=== PATIENT | female | born 1980 | race Native Hawaiian/Other Pacific Islander ===

== ENCOUNTER 2019-03-08 13:39 | Outpatient (CLI) | payer MEDICAID | END 2019-03-08 23:59 | disposition home or self-care (01) | LOC: RAD 13:39 | PROVIDERS: ATTEND Physician Assistant Medical | DX: R10.9 Unspecified abdominal pain (principal) | CPT/HCPCS: 76775 ==

== ENCOUNTER 2019-03-22 21:40 | Inpatient (IN) | payer MEDICAID ==
[~2019-03-22] VITALS: Ht 167.6 cm; Wt 55.0 kg
[2019-03-22 22:54] LABS: BASOPHILS # (AUTO) 0.1 X10'3 (0-0.2); MEAN CORPUSCULAR HGB CONC 33.8 g/dL (33.0-36.5); MEAN PLATELET VOLUME 7.4 FL (7.4-10.4); MONOCYTES # (AUTO) 1.4 X10'3 (0-0.9); NEUTROPHILS # (AUTO) 11.1 X10'3 (1.8-7.7)
[2019-03-22 22:56] LABS: BASOPHILS % (AUTO) 0.5 % (0-1); EOSINOPHILS # (AUTO) 0.5 X10'3 (0-0.9); EOSINOPHILS % (AUTO) 3.4 % (0-6); HEMATOCRIT 26.6 % (35.0-45.0); LYMPHOCYTES # (AUTO) 1.3 X10'3 (1.1-4.8); LYMPHOCYTES % (AUTO) 9.1 % (21-51); MEAN CORPUSCULAR HEMOGLOBIN 32.8 PG (27.0-31.0); PLATELET COUNT 736 X10'3 (140-440); RED BLOOD COUNT 2.75 X10'6 (4.20-5.60); WHITE BLOOD COUNT 14.4 X10'3 (4.5-11.0)
[2019-03-22 23:07] LABS: ALANINE AMINOTRANSFERASE 14 U/L (12-78); ALBUMIN 1.8 G/DL (3.4-5.0); ALBUMIN/GLOBULIN RATIO 0.4 (1.1-1.5); ALKALINE PHOSPHATASE 131 IU/L (46-116); ANION GAP 11 (8-16); ASPARTATE AMINO TRANSFERASE 16 U/L (10-37); BILIRUBIN,TOTAL 0.4 MG/DL (0.1-1.0); BLOOD UREA NITROGEN 10 MG/DL (7-18); CALCIUM 8.4 MG/DL (8.5-10.1); CHLORIDE 99 MMOL/L (99-107); CREATININE 0.83 MG/DL (0.40-0.90); GLUCOSE 99 MG/DL (70-104); POTASSIUM 3.4 MMOL/L (3.5-5.1); SODIUM 133 MMOL/L (135-145); TOTAL PROTEIN 6.9 G/DL (6.4-8.2); eGFR 78 ML/MIN
[2019-03-22 23:14] LABS: URINE HCG NEGATIVE (NEG)
[2019-03-22 23:15] LABS: CLARITY,URINE CLEAR (Clear); COLOR,URINE YELLOW (Yellow); GLUCOSE, URINE NEGATIVE (Neg); KETONES,URINE NEGATIVE (Neg); LEUKOCYTE ESTERASE ,URINE NEGATIVE (Neg); NITRITES, URINE NEGATIVE (Neg); OCCULT BLOOD,URINE NEGATIVE (Neg); PROTEIN,URINE NEGATIVE (Neg); UROBILINOGEN,URINE 0.2 E.U/dL (0.2-1.0)
[2019-03-22 23:19] LABS: UA COLLECTION TYPE CLN CATCH MIDSTREAM
[2019-03-22] MEDS ORDERED: CefTRIAXone 250MG IM Kit w/LIDOcaine IM ONE (23:40)
[2019-03-22] MEDS ORDERED: azithromycin 250mg tablet PO ONE (23:40)
[2019-03-23] MEDS ORDERED: METR500T PO (01:16)
[2019-03-23] MEDS ORDERED: HYDROcodone/acetaminophen 10/325mg tab PO ONE (01:25)
--- NOTE | 2019-03-23 02:38 | NUR ---
CT RESULTED AND PT AWAITING REEVAL FROM PROVIDER
[2019-03-23 03:12] LABS: LIPASE 8158 U/L (73-393)
--- NOTE | 2019-03-23 03:47 | NUR ---
pt placed on hospital bed for comfort
[2019-03-23] MEDS ORDERED: magnesium hydroxide 30ml (MOM) UD suspension PO PRN (04:20)
[2019-03-23] MEDS ORDERED: acetaminophen 325mg tablet PO PRN (04:20)
[2019-03-23] MEDS ORDERED: potassium CL 10mEq/100ml bag 100 ML IV PRN ×2 (04:20)
[2019-03-23] MEDS ORDERED: potassium Cl 20 mEq SR tablet PO PRN (04:20)
[2019-03-23] MEDS ORDERED: ondansetron/PF 4mg/2ml inj IV PRN (04:20)
[2019-03-23] MEDS ORDERED: mag hydrox/Alum hydrox/simeth 30ml oral suspension PO PRN (04:20)
[2019-03-23] MEDS: normal saline 1000ml 1,000 ML IV SCH ×4 (04:48→23:20)
[2019-03-23] MEDS: HYDROcodone/acetaminophen 5mg/325mg tablet PO PRN ×3 (04:48→22:00)
--- NOTE | 2019-03-23 04:59 | NUR ---
IPA 359A, PT UP TO BR , AMBLUATING WITH STEADY GAIT. REPROTS PAIN TO LEFT FLANK AND LEFT ABDOMEN OF 8 OUT OF 10. GIVEN NORCO. PIV NOW IN PLACE, 20 G R FA. STABLE VS.
--- NOTE | 2019-03-23 05:00 | NUR ---
Patient in room ED 2. I have received report from Milena GARCIA in ER and had the opportunity to ask questions awaiting pts arrival to room 359A. Addendum: 03/23/19 at 0520 by Lorraine De La Cruz RN Amended: Links added.
[2019-03-23 05:44] VITALS: BP 122/81
[2019-03-23] MEDS: piperacillin/tazo 4.5gm/100ml 100 ML IV SCH ×3 (06:06→23:14)
--- NOTE | 2019-03-23 07:14 | NUR ---
Patient in room [facility] 359. I have received report from RADHA Peters and had the opportunity to ask questions and assume patient care.
[2019-03-23 08:00] VITALS: BP 125/78
[2019-03-23] MEDS: K and/or MAG REPLACEMENT MC SCH ×2 (08:00→19:33)
[2019-03-23 08:19] LABS: MAGNESIUM 1.4 MG/DL (1.5-2.4)
[2019-03-23 08:54] LABS: ALANINE AMINOTRANSFERASE 14 U/L (12-78); ALBUMIN 1.8 G/DL (3.4-5.0); ALBUMIN/GLOBULIN RATIO 0.4 (1.1-1.5); ALKALINE PHOSPHATASE 123 IU/L (46-116); ANION GAP 9 (8-16); ASPARTATE AMINO TRANSFERASE 12 U/L (10-37); BILIRUBIN,TOTAL 0.3 MG/DL (0.1-1.0); BLOOD UREA NITROGEN 8 MG/DL (7-18); BUN/CREATININE RATIO 10.5 (6.6-38.0); CALCIUM 8.7 MG/DL (8.5-10.1); CHLORIDE 101 MMOL/L (99-107); CREATININE 0.76 MG/DL (0.40-0.90); GLUCOSE 95 MG/DL (70-104); MAGNESIUM 1.5 MG/DL (1.5-2.4); POTASSIUM 3.4 MMOL/L (3.5-5.1); SODIUM 135 MMOL/L (135-145); TOTAL CARBON DIOXIDE 25.5 MMOL/L (24-32); TOTAL PROTEIN 6.6 G/DL (6.4-8.2); eGFR 86 ML/MIN
[2019-03-23] MEDS: potassium Cl 20 mEq SR tablet PO PRN ×3 (09:25→17:01)
[2019-03-23] MEDS ORDERED: NO HOME MEDS (09:29)
[2019-03-23 11:00] VITALS: BP 111/76
--- NOTE | 2019-03-23 12:41 | NUR ---
PAGER ID: [phone] MESSAGE: [id number] pt. Calli Tobias. pt. lipase is [id number]. she's currently on a clear liquid diet. do you want to keep that or have her be NPO? please advise. RADHA Kaba [id number]
[2019-03-23] MEDS: morphine 2 MG/ML inj. syringe IV PRN ×2 (12:50→19:52)
[2019-03-23 18:00] VITALS: BP 118/78
--- NOTE | 2019-03-23 18:10 | NUR ---
Patient in room [facility] 359. I have received report from RADHA Mcadams and had the opportunity to ask questions and assume patient care.
--- NOTE | 2019-03-23 19:05 | NUR ---
Problems reprioritized. Patient report given, questions answered & plan of care reviewed with RADHA Pacheco.
[2019-03-23] MEDS: lactobacillus rhamnosus 10,000 MMU CELLS/CAPSULE PO SCH (19:52)
[2019-03-24] MEDS: morphine 2 MG/ML inj. syringe IV PRN ×3 (01:11→21:00)
[2019-03-24 01:20] VITALS: BP 119/76
[2019-03-24] MEDS: HYDROcodone/acetaminophen 5mg/325mg tablet PO PRN ×5 (02:39→23:41)
[2019-03-24 04:39] LABS: BASOPHILS # (AUTO) 0.1 X10'3 (0-0.2); BASOPHILS % (AUTO) 0.6 % (0-1); EOSINOPHILS # (AUTO) 0.8 X10'3 (0-0.9); EOSINOPHILS % (AUTO) 7.2 % (0-6); HEMATOCRIT 24.5 % (35.0-45.0); HEMOGLOBIN 8.2 g/dl (12.0-16.0); LYMPHOCYTES # (AUTO) 1.4 X10'3 (1.1-4.8); LYMPHOCYTES % (AUTO) 13.4 % (21-51); MEAN CORPUSCULAR HEMOGLOBIN 32.3 PG (27.0-31.0); MEAN CORPUSCULAR HGB CONC 33.5 g/dL (33.0-36.5); MEAN CORPUSCULAR VOLUME 96.4 FL (78-98); MEAN PLATELET VOLUME 7.1 FL (7.4-10.4); MONOCYTES # (AUTO) 1.4 X10'3 (0-0.9); MONOCYTES % (AUTO) 12.9 % (2-12); NEUTROPHILS # (AUTO) 7.1 X10'3 (1.8-7.7); NEUTROPHILS % (AUTO) 65.9 % (42-75); PLATELET COUNT 740 X10'3 (140-440); RED BLOOD COUNT 2.54 X10'6 (4.20-5.60); RED CELL DISTRIBUTION WIDTH 14.5 % (11.5-14.5); WHITE BLOOD COUNT 10.7 X10'3 (4.5-11.0)
[2019-03-24 05:01] LABS: ALANINE AMINOTRANSFERASE 12 U/L (12-78); ALBUMIN 1.7 G/DL (3.4-5.0); ALBUMIN/GLOBULIN RATIO 0.4 (1.1-1.5); ALKALINE PHOSPHATASE 108 IU/L (46-116); ANION GAP 8 (8-16); ASPARTATE AMINO TRANSFERASE 13 U/L (10-37); BILIRUBIN,TOTAL 0.3 MG/DL (0.1-1.0); BLOOD UREA NITROGEN 7 MG/DL (7-18); BUN/CREATININE RATIO 8.5 (6.6-38.0); CALCIUM 8.7 MG/DL (8.5-10.1); CHLORIDE 107 MMOL/L (99-107); CREATININE 0.82 MG/DL (0.40-0.90); GLUCOSE 79 MG/DL (70-104); POTASSIUM 3.8 MMOL/L (3.5-5.1); SODIUM 139 MMOL/L (135-145); TOTAL CARBON DIOXIDE 23.8 MMOL/L (24-32); TOTAL PROTEIN 6.4 G/DL (6.4-8.2); eGFR 79 ML/MIN
--- NOTE | 2019-03-24 06:00 | NUR ---
Patient in room [facility] 359. I have received report from RADHA Pacheco and had the opportunity to ask questions and assume patient care.
[2019-03-24 06:18] LABS: HYPERSEGMENTED NEUTROPHILS 1+; PLATELET ESTIMATE INCREASED; TOTAL CELLS COUNTED 100
[2019-03-24 06:19] LABS: HYPOCHROMASIA 1+; POLYCHROMASIA 1+
--- NOTE | 2019-03-24 06:38 | NUR ---
Problems reprioritized. Patient report given, questions answered & plan of care reviewed with RADHA Salinas and RADHA Carvajal.
[2019-03-24 07:00] VITALS: BP 132/82
[2019-03-24] MEDS: K and/or MAG REPLACEMENT MC SCH ×2 (08:00→19:09)
[2019-03-24] MEDS: normal saline 1000ml 1,000 ML IV SCH ×2 (08:06→17:25)
[2019-03-24] MEDS: piperacillin/tazo 4.5gm/100ml 100 ML IV SCH ×3 (08:06→23:42)
[2019-03-24] MEDS: lactobacillus rhamnosus 10,000 MMU CELLS/CAPSULE PO SCH ×2 (08:06→19:22)
[2019-03-24 11:00] VITALS: BP 119/81
[2019-03-24 14:17] LABS: LIPASE 5040 U/L (73-393)
[2019-03-24 18:00] VITALS: BP 131/85
--- NOTE | 2019-03-24 18:42 | NUR ---
Problems reprioritized. Patient report given, questions answered & plan of care reviewed with RADHA LEGGETT .
--- NOTE | 2019-03-24 19:06 | NUR ---
Patient in room [facility] 359. I have received report from Alena RN and Rita RN and had the opportunity to ask questions and assume patient care.
[2019-03-24] MEDS: diatr meglu/diatrizoate 30ml oral sol.-(3 dose) bottle PO SCH (21:00)
[2019-03-25 00:15] VITALS: BP 134/87
[2019-03-25] MEDS: normal saline 1000ml 1,000 ML IV SCH ×3 (02:47→23:56)
[2019-03-25] MEDS: HYDROcodone/acetaminophen 5mg/325mg tablet PO PRN ×5 (03:47→22:48)
[2019-03-25 05:56] LABS: BASOPHILS # (AUTO) 0.1 X10'3 (0-0.2); BASOPHILS % (AUTO) 0.8 % (0-1); RED CELL DISTRIBUTION WIDTH 14.5 % (11.5-14.5)
[2019-03-25 06:00] LABS: EOSINOPHILS # (AUTO) 0.8 X10'3 (0-0.9); EOSINOPHILS % (AUTO) 7.3 % (0-6); HEMATOCRIT 23.6 % (35.0-45.0); LYMPHOCYTES # (AUTO) 1.9 X10'3 (1.1-4.8); LYMPHOCYTES % (AUTO) 17.4 % (21-51); MEAN CORPUSCULAR HEMOGLOBIN 32.9 PG (27.0-31.0); MEAN CORPUSCULAR HGB CONC 33.8 g/dL (33.0-36.5); MEAN CORPUSCULAR VOLUME 97.5 FL (78-98); MEAN PLATELET VOLUME 7.7 FL (7.4-10.4); MONOCYTES % (AUTO) 9.2 % (2-12); NEUTROPHILS # (AUTO) 6.9 X10'3 (1.8-7.7); NEUTROPHILS % (AUTO) 65.3 % (42-75); PLATELET COUNT 769 X10'3 (140-440); RED BLOOD COUNT 2.42 X10'6 (4.20-5.60); WHITE BLOOD COUNT 10.6 X10'3 (4.5-11.0)
[2019-03-25 06:14] LABS: % IRON SATURATION 8 % (11-46); IRON 14 UG/DL (49-151); TOTAL IRON BINDING CAPACITY 173 UG/DL (259-388)
[2019-03-25 06:28] LABS: ALANINE AMINOTRANSFERASE 10 U/L (12-78); ALBUMIN 1.5 G/DL (3.4-5.0); ALBUMIN/GLOBULIN RATIO 0.3 (1.1-1.5); ALKALINE PHOSPHATASE 101 IU/L (46-116); ANION GAP 16 (8-16); ASPARTATE AMINO TRANSFERASE 12 U/L (10-37); BILIRUBIN,TOTAL 0.3 MG/DL (0.1-1.0); BLOOD UREA NITROGEN 4 MG/DL (7-18); CALCIUM 8.3 MG/DL (8.5-10.1); CHLORIDE 105 MMOL/L (99-107); GLUCOSE 65 MG/DL (70-104); POTASSIUM 3.8 MMOL/L (3.5-5.1); SODIUM 140 MMOL/L (135-145); TOTAL CARBON DIOXIDE 19.5 MMOL/L (24-32); TOTAL PROTEIN 6.5 G/DL (6.4-8.2); eGFR 81 ML/MIN
--- NOTE | 2019-03-25 06:38 | NUR ---
Problems reprioritized. Patient report given, questions answered & plan of care reviewed with RADHA Carlson.
--- NOTE | 2019-03-25 07:01 | NUR ---
Patient in room [facility] 359. I have received report from JOCE GARCIA and had the opportunity to ask questions and assume patient care.
[2019-03-25 07:19] VITALS: BP 135/90
[2019-03-25 07:19] LABS: HYPOCHROMASIA 1+; PLATELET ESTIMATE INCREASED; POLYCHROMASIA 1+; TOTAL CELLS COUNTED 100
[2019-03-25] MEDS: piperacillin/tazo 4.5gm/100ml 100 ML IV SCH ×3 (07:36→23:56)
[2019-03-25] MEDS: lactobacillus rhamnosus 10,000 MMU CELLS/CAPSULE PO SCH ×2 (07:36→18:48)
[2019-03-25] MEDS: diatr meglu/diatrizoate 30ml oral sol.-(3 dose) bottle PO SCH ×2 (07:36→09:26)
[2019-03-25] MEDS: K and/or MAG REPLACEMENT MC SCH ×2 (08:00→20:00)
[2019-03-25] MEDS ORDERED: iohexol 300mg/ml 100ml inj. ONE (09:05)
[2019-03-25] MEDS: morphine 2 MG/ML inj. syringe IV PRN (10:39)
[2019-03-25 11:00] VITALS: BP 129/83
--- NOTE | 2019-03-25 18:27 | NUR ---
Problems reprioritized. Patient report given, questions answered & plan of care reviewed with JOCE GARCIA.
[2019-03-25 18:30] VITALS: BP 137/86
--- NOTE | 2019-03-25 18:39 | NUR ---
Patient in room [facility] 359. I have received report from RADHA Carlson and had the opportunity to ask questions and assume patient care.
--- NOTE | 2019-03-25 19:01 | NUR ---
Lipase 1393 was 8158. Patient states that she would like to eat. Her last meal was on 03/21/19. Called Dr. Le and she would like pt to remain NPO. Talked to patient and she is aware of importance to be NPO until Lipase level decrease. Will continue to monitor patient for c/o pain.
[2019-03-26] VITALS: BP 144/79
[2019-03-26] MEDS: morphine 2 MG/ML inj. syringe IV PRN ×4 (00:09→19:27)
[2019-03-26] MEDS: HYDROcodone/acetaminophen 5mg/325mg tablet PO PRN ×3 (02:45→22:43)
[2019-03-26 06:17] LABS: BASOPHILS # (AUTO) 0.1 X10'3 (0-0.2); EOSINOPHILS # (AUTO) 0.6 X10'3 (0-0.9); HEMOGLOBIN 7.6 g/dl (12.0-16.0); LYMPHOCYTES # (AUTO) 1.9 X10'3 (1.1-4.8); NEUTROPHILS # (AUTO) 5.5 X10'3 (1.8-7.7)
[2019-03-26 06:20] LABS: BASOPHILS % (AUTO) 0.8 % (0-1); EOSINOPHILS % (AUTO) 6.2 % (0-6); HEMATOCRIT 22.2 % (35.0-45.0); MEAN CORPUSCULAR HEMOGLOBIN 33.2 PG (27.0-31.0); MEAN CORPUSCULAR HGB CONC 34.4 g/dL (33.0-36.5); MEAN CORPUSCULAR VOLUME 96.6 FL (78-98); MEAN PLATELET VOLUME 6.7 FL (7.4-10.4); MONOCYTES % (AUTO) 10.6 % (2-12); NEUTROPHILS % (AUTO) 61.4 % (42-75); PLATELET COUNT 773 X10'3 (140-440)
[2019-03-26 06:25] LABS: ALANINE AMINOTRANSFERASE 7 U/L (12-78); ALBUMIN 1.6 G/DL (3.4-5.0); ALBUMIN/GLOBULIN RATIO 0.3 (1.1-1.5); ALKALINE PHOSPHATASE 91 IU/L (46-116); ANION GAP 10 (8-16); ASPARTATE AMINO TRANSFERASE 13 U/L (10-37); BILIRUBIN,TOTAL 0.2 MG/DL (0.1-1.0); BLOOD UREA NITROGEN 3 MG/DL (7-18); BUN/CREATININE RATIO 4.2 (6.6-38.0); CALCIUM 8.7 MG/DL (8.5-10.1); CHLORIDE 105 MMOL/L (99-107); CREATININE 0.72 MG/DL (0.40-0.90); GLUCOSE 72 MG/DL (70-104); LIPASE 852 U/L (73-393); POTASSIUM 3.5 MMOL/L (3.5-5.1); SODIUM 140 MMOL/L (135-145); TOTAL CARBON DIOXIDE 24.9 MMOL/L (24-32); TOTAL PROTEIN 6.3 G/DL (6.4-8.2); eGFR > 90 ML/MIN
[2019-03-26 07:00] VITALS: BP 133/55
--- NOTE | 2019-03-26 07:02 | NUR ---
Problems reprioritized. Patient report given, questions answered & plan of care reviewed with RADHA Fernandes.
[2019-03-26] MEDS: piperacillin/tazo 4.5gm/100ml 100 ML IV SCH ×2 (07:48→15:16)
[2019-03-26] MEDS: K and/or MAG REPLACEMENT MC SCH ×2 (07:48→20:00)
[2019-03-26] MEDS: lactobacillus rhamnosus 10,000 MMU CELLS/CAPSULE PO SCH ×2 (07:48→20:43)
[2019-03-26 11:00] VITALS: BP 139/87
--- NOTE | 2019-03-26 11:37 | NUR ---
Paged case management regarding transport for tomorrow's transfer.
--- NOTE | 2019-03-26 11:45 | NUR ---
Received a phone response from Daphnie at case a management. If pt. does transfer, it will be in an ambulance. Hospitalist plans to consult with IR now to see if a drain can be placed/ unsure at this point if pt. is going to transfer or not.
--- NOTE | 2019-03-26 11:59 | NUR ---
Spoke to MD Le. No plans to start TPN today- maybe tomorrow. Possible consult with IR. Nicotine patch ordered for pt.
[2019-03-26] MEDS: nicotine 14mg patch - 24hr TD SCH (13:37)
--- NOTE | 2019-03-26 15:38 | NUR ---
Pt. is not transferring r/t facility non-accepting per case management. Pt. updated on POC.
--- NOTE | 2019-03-26 18:23 | NUR ---
Pt. in bed resting comfortably with rise and fall of chest, report given to oncoming RADHA Waller.
[2019-03-26 19:00] VITALS: BP 139/88
--- NOTE | 2019-03-26 19:00 | NUR ---
Patient in room [facility] 359. I have received report from Dena GARCIA and had the opportunity to ask questions and assume patient care.
--- NOTE | 2019-03-26 19:27 | NUR ---
At 1927 MS 2 mg were administered, not the 4 mg as is shown on the MAR. I was unable to remove the dose from the 4 mg med administration. I did add the dose to the 2 mg administration.
[2019-03-26] MEDS: normal saline 1000ml 1,000 ML IV SCH (22:45)
[2019-03-27] VITALS (7 sets, daily range): BP systolic 118–145; BP diastolic 73–90
[2019-03-27] MEDS: piperacillin/tazo 4.5gm/100ml 100 ML IV SCH ×4 (00:16→23:45)
[2019-03-27] MEDS: normal saline 1000ml 1,000 ML IV SCH ×2 (03:22→13:56)
[2019-03-27] MEDS: morphine 2 MG/ML inj. syringe IV PRN ×2 (03:36→21:57)
[2019-03-27 06:11] LABS: BASOPHILS # (AUTO) 0.1 X10'3 (0-0.2); EOSINOPHILS # (AUTO) 0.3 X10'3 (0-0.9); EOSINOPHILS % (AUTO) 2.7 % (0-6); HEMOGLOBIN 8.3 g/dl (12.0-16.0); LYMPHOCYTES # (AUTO) 1.4 X10'3 (1.1-4.8); MONOCYTES # (AUTO) 1.1 X10'3 (0-0.9); RED BLOOD COUNT 2.51 X10'6 (4.20-5.60)
[2019-03-27 06:14] LABS: BASOPHILS % (AUTO) 0.8 % (0-1); HEMATOCRIT 24.1 % (35.0-45.0); LYMPHOCYTES % (AUTO) 14.2 % (21-51); MEAN CORPUSCULAR HEMOGLOBIN 32.9 PG (27.0-31.0); MEAN CORPUSCULAR HGB CONC 34.4 g/dL (33.0-36.5); MEAN CORPUSCULAR VOLUME 95.8 FL (78-98); MEAN PLATELET VOLUME 6.9 FL (7.4-10.4); MONOCYTES % (AUTO) 10.4 % (2-12); NEUTROPHILS # (AUTO) 7.3 X10'3 (1.8-7.7); NEUTROPHILS % (AUTO) 71.9 % (42-75); PLATELET COUNT 779 X10'3 (140-440); RED CELL DISTRIBUTION WIDTH 14.1 % (11.5-14.5); WHITE BLOOD COUNT 10.1 X10'3 (4.5-11.0)
[2019-03-27 06:26] LABS: ALANINE AMINOTRANSFERASE 9 U/L (12-78); ALBUMIN 1.6 G/DL (3.4-5.0); ALBUMIN/GLOBULIN RATIO 0.3 (1.1-1.5); ALKALINE PHOSPHATASE 86 IU/L (46-116); ANION GAP 15 (8-16); ASPARTATE AMINO TRANSFERASE 13 U/L (10-37); BILIRUBIN,TOTAL 0.2 MG/DL (0.1-1.0); BLOOD UREA NITROGEN 2 MG/DL (7-18); BUN/CREATININE RATIO 2.6 (6.6-38.0); CALCIUM 8.5 MG/DL (8.5-10.1); CHLORIDE 102 MMOL/L (99-107); CREATININE 0.76 MG/DL (0.40-0.90); GLUCOSE 70 MG/DL (70-104); POTASSIUM 3.5 MMOL/L (3.5-5.1); SODIUM 138 MMOL/L (135-145); TOTAL CARBON DIOXIDE 21.2 MMOL/L (24-32); TOTAL PROTEIN 6.5 G/DL (6.4-8.2); eGFR 86 ML/MIN
[2019-03-27 06:42] LABS: LIPASE 2944 U/L (73-393)
--- NOTE | 2019-03-27 06:50 | NUR ---
Problems reprioritized. Patient report given, questions answered & plan of care reviewed with Lorrie GARCIA.
[2019-03-27] MEDS: K and/or MAG REPLACEMENT MC SCH ×2 (08:00→20:00)
[2019-03-27] MEDS: lactobacillus rhamnosus 10,000 MMU CELLS/CAPSULE PO SCH ×2 (08:03→20:07)
[2019-03-27] MEDS: nicotine 14mg patch - 24hr TD SCH (08:03)
[2019-03-27] MEDS: HYDROcodone/acetaminophen 5mg/325mg tablet PO PRN (08:09)
[2019-03-27] MEDS ORDERED: fentaNYL/PF 50MCG/1 ML 2ML syringe IV PRN (10:55)
[2019-03-27] MEDS ORDERED: LIDOcaine 1%/PF 5ML 10 MG/ML VIAL SQ ONE (10:55)
[2019-03-27] MEDS ORDERED: midazolam 2 mg/2 ml injection IV PRN (10:55)
[2019-03-27] MEDS ORDERED: midazolam 2 mg/2 ml injection ONE (11:03)
[2019-03-27] MEDS ORDERED: fentaNYL/PF 50MCG/1 ML 2ML syringe ONE (11:03)
--- NOTE | 2019-03-27 12:00 | NUR ---
received report from Caroline GARCIA. patient arrived to floor. VSS.
--- NOTE | 2019-03-27 12:10 | NUR ---
per MARINO Velazquez no need for post op vitals. Addendum: 03/27/19 at 1211 by Lorrie Crespo RN Amended: Links added.
--- NOTE | 2019-03-27 16:07 | NUR ---
patient in shower.
--- NOTE | 2019-03-27 16:45 | NUR ---
stool sample sent
--- NOTE | 2019-03-27 18:20 | NUR ---
Patient in room [facility] 359. I have received report from Lorrie GARCIA and had the opportunity to ask questions and assume patient care.
--- NOTE | 2019-03-27 18:27 | NUR ---
Problems reprioritized. Patient report given, questions answered & plan of care reviewed with RADHA Waller.
[2019-03-27] MEDS ORDERED: Dextrose 10%-water IV solution 1,000 ML IV PRN (19:11)
[2019-03-27] MEDS ORDERED: magnesium 2GM in 50ml NS 50 ML IV PRN (19:15)
[2019-03-27] MEDS ORDERED: magnesium Cl slow-release 64mg tablet PO PRN (19:15)
[2019-03-27] MEDS ORDERED: magnesium 4gm in 100ml NS 100 ML IV PRN (19:15)
--- NOTE | 2019-03-27 19:43 | NUR ---
Pharmacist called and stated unable to start the PPN tonight, so to follow protocol and hang D10 at 30cc.
[2019-03-27 20:03] LABS: ALANINE AMINOTRANSFERASE 13 U/L (12-78); ALBUMIN 1.9 G/DL (3.4-5.0); ALBUMIN/GLOBULIN RATIO 0.3 (1.1-1.5); ALKALINE PHOSPHATASE 98 IU/L (46-116); ANION GAP 15 (8-16); ASPARTATE AMINO TRANSFERASE 13 U/L (10-37); BILIRUBIN,TOTAL 0.2 MG/DL (0.1-1.0); BLOOD UREA NITROGEN 2 MG/DL (7-18); BUN/CREATININE RATIO 2.5 (6.6-38.0); CHLORIDE 102 MMOL/L (99-107); GLUCOSE 71 MG/DL (70-104); MAGNESIUM 1.3 MG/DL (1.5-2.4); POTASSIUM 3.6 MMOL/L (3.5-5.1); SODIUM 139 MMOL/L (135-145); TOTAL CARBON DIOXIDE 22.5 MMOL/L (24-32); TOTAL PROTEIN 7.5 G/DL (6.4-8.2); TRIGLYCERIDES 154 MG/DL (20-135); eGFR 81 ML/MIN
[2019-03-27] MEDS ORDERED: fat emulsion 20% IV 181.82 ML, MVI, adult No.4 with vit. K 4.55 ML, Trace element-5 inj... IV SCH ×4 (20:11)
[2019-03-27 21:07] LABS: OCCULT BLOOD STOOL NEGATIVE (Neg)
[2019-03-27] MEDS: temazepam 15mg capsule PO PRN (23:50)
[2019-03-28] VITALS: BP 137/88
[2019-03-28] MEDS ORDERED: dextrose 50%-water 50ml dispensing syringe IV PRN ×2 (02:35)
[2019-03-28] MEDS ORDERED: dextrose ORAL solution 15 GM/59 ML bottle PO PRN ×2 (02:35)
[2019-03-28] MEDS ORDERED: MESSAGE TO PHARMACY PO ONE (02:35)
[2019-03-28] MEDS ORDERED: insulin Lispro (HumaLOG) vial - multi-dose SQ SCH (02:35)
[2019-03-28] MEDS ORDERED: insulin regular, human vial - multi-dose SQ SCH (02:35)
[2019-03-28] MEDS ORDERED: glucagon, human recombinant 1mg kit SUBCUT PRN (02:35)
--- NOTE | 2019-03-28 03:20 | NUR ---
Patient had a accu check that was 68. Patient received 25ml of 50% dextrose and rechecked. Blood sugar now 127. Patient showed no symptoms of low blood sugar.
[2019-03-28 06:21] LABS: BASOPHILS # (AUTO) 0.1 X10'3 (0-0.2); EOSINOPHILS # (AUTO) 0.2 X10'3 (0-0.9); HEMOGLOBIN 8.6 g/dl (12.0-16.0); MEAN CORPUSCULAR HEMOGLOBIN 32.6 PG (27.0-31.0); MONOCYTES # (AUTO) 0.9 X10'3 (0-0.9); NEUTROPHILS # (AUTO) 5.7 X10'3 (1.8-7.7); WHITE BLOOD COUNT 8.4 X10'3 (4.5-11.0)
[2019-03-28 06:24] LABS: EOSINOPHILS % (AUTO) 2.6 % (0-6); HEMATOCRIT 24.9 % (35.0-45.0); LYMPHOCYTES # (AUTO) 1.4 X10'3 (1.1-4.8); LYMPHOCYTES % (AUTO) 17.2 % (21-51); MEAN CORPUSCULAR HGB CONC 34.5 g/dL (33.0-36.5); MEAN CORPUSCULAR VOLUME 94.6 FL (78-98); MEAN PLATELET VOLUME 6.8 FL (7.4-10.4); MONOCYTES % (AUTO) 10.9 % (2-12); NEUTROPHILS % (AUTO) 68.3 % (42-75); PLATELET COUNT 801 X10'3 (140-440); RED BLOOD COUNT 2.63 X10'6 (4.20-5.60); RED CELL DISTRIBUTION WIDTH 14.3 % (11.5-14.5)
[2019-03-28 06:48] LABS: ALANINE AMINOTRANSFERASE 10 U/L (12-78); ALBUMIN 1.7 G/DL (3.4-5.0); ALBUMIN/GLOBULIN RATIO 0.4 (1.1-1.5); ALKALINE PHOSPHATASE 81 IU/L (46-116); ANION GAP 13 (8-16); ASPARTATE AMINO TRANSFERASE 13 U/L (10-37); BILIRUBIN,TOTAL 0.2 MG/DL (0.1-1.0); BLOOD UREA NITROGEN 2 MG/DL (7-18); BUN/CREATININE RATIO 2.6 (6.6-38.0); CALCIUM 8.8 MG/DL (8.5-10.1); CHLORIDE 103 MMOL/L (99-107); CREATININE 0.77 MG/DL (0.40-0.90); GLUCOSE 78 MG/DL (70-104); LIPASE 726 U/L (73-393); MAGNESIUM 1.3 MG/DL (1.5-2.4); PHOSPHORUS 4.2 MG/DL (2.3-4.5); POTASSIUM 3.2 MMOL/L (3.5-5.1); PREALBUMIN 13.6 MG/DL (19-36); SODIUM 141 MMOL/L (135-145); TOTAL CARBON DIOXIDE 25.3 MMOL/L (24-32); TOTAL PROTEIN 6.4 G/DL (6.4-8.2); eGFR 85 ML/MIN
--- NOTE | 2019-03-28 06:49 | NUR ---
Problems reprioritized. Patient report given, questions answered & plan of care reviewed with Lorrie GARCIA.
[2019-03-28 06:57] LABS: HEMOGLOBIN A1C 5.3 % (4.5-6.2)
[2019-03-28 07:00] VITALS: BP 135/92
[2019-03-28] MEDS: K and/or MAG REPLACEMENT MC SCH ×2 (08:00→20:00)
--- NOTE | 2019-03-28 08:10 | NUR ---
PAGER ID: [phone] MESSAGE: Carla RAMIREZ 359A: K+ 3.2 WOULD YOU LIKE REPLACEMENT? THANKS! CAIO [id number]
[2019-03-28] MEDS: lactobacillus rhamnosus 10,000 MMU CELLS/CAPSULE PO SCH ×2 (08:12→20:36)
[2019-03-28] MEDS: nicotine 14mg patch - 24hr TD SCH (08:13)
[2019-03-28] MEDS: piperacillin/tazo 4.5gm/100ml 100 ML IV SCH (08:14)
[2019-03-28] MEDS: HYDROcodone/acetaminophen 5mg/325mg tablet PO PRN ×3 (08:21→20:37)
[2019-03-28] MEDS ORDERED: potassium Cl 20 mEq SR tablet PO PRN (08:45)
--- NOTE | 2019-03-28 09:28 | NUR ---
PPN consult, patient does not have a PICC line. Has been NPO >5 days. Admitted with elevated lipase and abdominal pain. Patient found to have EtOH pancreatitis with pseudocyst. Recommend: 1. 2:1 PPN using Clinimix E 4.25/5 at 100 ml/hr providing total volume of 2400 ml daily with separate 20% intralipids running at 17 ml/hr to provide total 81.6 g lipids. Total PPN and lipids will provide 102 g protein, 120 g dextrose, 1216 cals, and 1.59 gm/kg/min CHO loading. This will meet protein needs however will not meet calorie needs. 2. Prealbumin q wednesday/, daily weights, TG q wednesday/ 3. Advance diet as medically indicated to low fat Addendum: 03/28/19 at [address] Amended: Links added.
[2019-03-28] MEDS: potassium CL 10mEq/100ml bag 100 ML IV PRN ×4 (09:51→14:54)
[2019-03-28 11:00] VITALS: BP 161/92
--- NOTE | 2019-03-28 18:16 | NUR ---
Problems reprioritized. Patient report given, questions answered & plan of care reviewed with RADHA Waller.
--- NOTE | 2019-03-28 18:30 | NUR ---
Patient in room [facility] 359. I have received report from Shane majano and had the opportunity to ask questions and assume patient care.
[2019-03-28 20:00] VITALS: BP 128/91
[2019-03-28] MEDS ORDERED: benzonatate 100mg capsule PO PRN (21:00)
[2019-03-28] MEDS ORDERED: fat emulsion IV bag 250 ML IV SCH (21:00)
[2019-03-28] MEDS: insulin glargine (Lantus) pen - multi-dose SQ SCH (21:00)
[2019-03-28] MEDS ORDERED: magnesium hydroxide 30ml (MOM) UD suspension PO PRN (21:00)
[2019-03-28] MEDS: Trace element-5 inj. 1 ML in AA 4.25%/calcium/lytes/D5W 2,000 ML IV SCH (21:36)
[2019-03-28] MEDS: morphine 2 MG/ML inj. syringe IV PRN (21:39)
[2019-03-28] MEDS: temazepam 15mg capsule PO PRN (23:46)
[2019-03-29] VITALS: BP 130/94
[2019-03-29 06:08] LABS: ALANINE AMINOTRANSFERASE 10 U/L (12-78); ALBUMIN 1.8 G/DL (3.4-5.0); ALBUMIN/GLOBULIN RATIO 0.4 (1.1-1.5); ALKALINE PHOSPHATASE 83 IU/L (46-116); ANION GAP 8 (8-16); ASPARTATE AMINO TRANSFERASE 12 U/L (10-37); BILIRUBIN,TOTAL 0.1 MG/DL (0.1-1.0); BLOOD UREA NITROGEN 2 MG/DL (7-18); BUN/CREATININE RATIO 3.1 (6.6-38.0); CALCIUM 8.9 MG/DL (8.5-10.1); CHLORIDE 104 MMOL/L (99-107); CREATININE 0.65 MG/DL (0.40-0.90); GLUCOSE 90 MG/DL (70-104); MAGNESIUM 1.7 MG/DL (1.5-2.4); PHOSPHORUS 3.9 MG/DL (2.3-4.5); POTASSIUM 3.4 MMOL/L (3.5-5.1); SODIUM 141 MMOL/L (135-145); TOTAL PROTEIN 6.5 G/DL (6.4-8.2); eGFR > 90 ML/MIN
--- NOTE | 2019-03-29 06:22 | NUR ---
Patient in room [facility] 359. I have received report from RADHA STACY and had the opportunity to ask questions and assume patient care.
[2019-03-29 07:00] VITALS: BP 128/81
[2019-03-29] MEDS: nicotine 14mg patch - 24hr TD SCH (07:49)
[2019-03-29] MEDS: potassium Cl 20 mEq SR tablet PO PRN ×2 (07:49→17:08)
[2019-03-29] MEDS: lactobacillus rhamnosus 10,000 MMU CELLS/CAPSULE PO SCH ×2 (07:49→21:24)
[2019-03-29] MEDS: morphine 2 MG/ML inj. syringe IV PRN ×4 (07:50→21:24)
[2019-03-29] MEDS ORDERED: docusate sod 100mg capsule PO SCH (08:00)
[2019-03-29] MEDS: K and/or MAG REPLACEMENT MC SCH ×2 (08:00→20:00)
[2019-03-29] MEDS ORDERED: [UNRECOGNIZED DRUG - REMARK] IV SCH ×2 (08:00)
--- NOTE | 2019-03-29 09:39 | NUR ---
patient's tpn rate increased to 100ml/hr as ordered.
[2019-03-29 11:50] VITALS: BP 138/93
--- NOTE | 2019-03-29 18:38 | NUR ---
Problems reprioritized. Patient report given, questions answered & plan of care reviewed with RADHA PONCE.
[2019-03-29 19:00] VITALS: BP 137/89
[2019-03-29] MEDS ORDERED: bisacodyl 10mg suppository rectal RC PRN (21:00)
[2019-03-29] MEDS: insulin glargine (Lantus) pen - multi-dose SQ SCH (21:00)
[2019-03-29] MEDS: fat emulsion IV bag 250 ML IV SCH (21:24)
[2019-03-29] MEDS: temazepam 15mg capsule PO PRN (22:58)
[2019-03-30] VITALS: BP 129/92
[2019-03-30] MEDS: Trace element-5 inj. 1 ML in AA 4.25%/calcium/lytes/D5W 2,000 ML IV SCH ×2 (00:36→20:18)
[2019-03-30 05:52] LABS: ALANINE AMINOTRANSFERASE 10 U/L (12-78); ALBUMIN 1.9 G/DL (3.4-5.0); ALBUMIN/GLOBULIN RATIO 0.4 (1.1-1.5); ALKALINE PHOSPHATASE 77 IU/L (46-116); ANION GAP 7 (8-16); ASPARTATE AMINO TRANSFERASE 13 U/L (10-37); BILIRUBIN,TOTAL 0.1 MG/DL (0.1-1.0); BLOOD UREA NITROGEN 7 MG/DL (7-18); BUN/CREATININE RATIO 11.9 (6.6-38.0); CALCIUM 9.2 MG/DL (8.5-10.1); CHLORIDE 102 MMOL/L (99-107); CREATININE 0.59 MG/DL (0.40-0.90); GLUCOSE 113 MG/DL (70-104); LIPASE 294 U/L (73-393); POTASSIUM 3.9 MMOL/L (3.5-5.1); PREALBUMIN 14.6 MG/DL (19-36); SODIUM 140 MMOL/L (135-145); TOTAL CARBON DIOXIDE 31.2 MMOL/L (24-32); TOTAL PROTEIN 6.7 G/DL (6.4-8.2); eGFR > 90 ML/MIN
--- NOTE | 2019-03-30 06:38 | NUR ---
Problems reprioritized. Patient report given, questions answered & plan of care reviewed with Yasmany GARCIA. Addendum: 03/30/19 at 0639 by Lorraine De La Cruz RN Amended: Links added.
[2019-03-30 07:00] VITALS: BP 123/85
--- NOTE | 2019-03-30 07:54 | NUR ---
Patient had a 22g LFA PIV that appeared to be infiltrated (small reddened, edematous, tender area at insertion site) that was dc'd yesterday. Patient reports redness, edema and tenderness to left arm has increased to a larger size during night and was outlined with black permanent marker by NOC RN. There was a left 22g left wrist PIV that patient reports that is also tender to touch and edematous where PPN was infusing today. That left wrist PIV was dc'd and a new IV 22g to RFA placed by RADHA Chicas. Patient educated to place warm blanket and elevate left arm. Dr. Le notified.
[2019-03-30] MEDS: K and/or MAG REPLACEMENT MC SCH ×2 (08:00→20:00)
[2019-03-30] MEDS: lactobacillus rhamnosus 10,000 MMU CELLS/CAPSULE PO SCH ×2 (08:00→20:36)
--- NOTE | 2019-03-30 08:00 | NUR ---
Patient in room [facility] 359. I have received report from Real Ramirez RN and had the opportunity to ask questions and assume patient care.
--- NOTE | 2019-03-30 08:15 | NUR ---
Received call back from Dr. Le with no new orders and that she will come see patient.
[2019-03-30] MEDS: MVI, adult No.4 with vit. K 10 ML in normal saline 500ml IV soln 500 ML IV SCH ×2 (09:37)
[2019-03-30] MEDS: morphine 2 MG/ML inj. syringe IV PRN ×3 (09:37→18:50)
[2019-03-30] MEDS: nicotine 14mg patch - 24hr TD SCH (09:38)
[2019-03-30 11:00] VITALS: BP 124/90
[2019-03-30] MEDS: ceFAZolin 1GM/D5W- ADD-VANTAGE 50 ML IV SCH ×3 (11:28→23:50)
--- NOTE | 2019-03-30 18:00 | NUR ---
Problems reprioritized. Patient report given, questions answered & plan of care reviewed with Trisha Peters.
--- NOTE | 2019-03-30 18:28 | NUR ---
Problems reprioritized. Patient report given, questions answered & plan of care reviewed with RADHA Peters.
[2019-03-30 20:00] VITALS: BP 122/92
[2019-03-30] MEDS: fat emulsion IV bag 250 ML IV SCH (20:19)
[2019-03-30] MEDS: insulin glargine (Lantus) pen - multi-dose SQ SCH (21:00)
[2019-03-30] MEDS ORDERED: morphine 4 MG/ML inj SYRINge IV PRN (22:56)
[2019-03-30] MEDS: temazepam 15mg capsule PO PRN (23:03)
--- NOTE | 2019-03-31 06:28 | NUR ---
Problems reprioritized. Patient report given, questions answered & plan of care reviewed with Yudith GARCIA. Addendum: 03/31/19 at 0628 by Lorraine De La Cruz RN Amended: Links added.
--- NOTE | 2019-03-31 06:30 | NUR ---
Patient in room [facility] 359. I have received report from ROSARIO GARCIA and had the opportunity to ask questions and assume patient care.
[2019-03-31 06:59] LABS: ALANINE AMINOTRANSFERASE 7 U/L (12-78); ALKALINE PHOSPHATASE 83 IU/L (46-116); ANION GAP 10 (8-16); ASPARTATE AMINO TRANSFERASE 9 U/L (10-37); BILIRUBIN,TOTAL 0.2 MG/DL (0.1-1.0); BLOOD UREA NITROGEN 10 MG/DL (7-18); BUN/CREATININE RATIO 14.7 (6.6-38.0); CALCIUM 9.6 MG/DL (8.5-10.1); CHLORIDE 100 MMOL/L (99-107); CREATININE 0.68 MG/DL (0.40-0.90); GLUCOSE 105 MG/DL (70-104); LIPASE 275 U/L (73-393); SODIUM 139 MMOL/L (135-145); TOTAL PROTEIN 7.2 G/DL (6.4-8.2); eGFR > 90 ML/MIN
[2019-03-31 07:07] LABS: ALBUMIN 2.2 G/DL (3.4-5.0); ALBUMIN/GLOBULIN RATIO 0.4 (1.1-1.5)
[2019-03-31] MEDS: K and/or MAG REPLACEMENT MC SCH ×2 (07:19→19:31)
[2019-03-31 07:23] VITALS: BP 114/80
[2019-03-31] MEDS: lactobacillus rhamnosus 10,000 MMU CELLS/CAPSULE PO SCH ×2 (09:07→19:40)
[2019-03-31] MEDS: nicotine 14mg patch - 24hr TD SCH (09:08)
[2019-03-31] MEDS: HYDROcodone/acetaminophen 5mg/325mg tablet PO PRN (09:11)
[2019-03-31 11:00] VITALS: BP 120/88
[2019-03-31] MEDS: ceFAZolin 1GM/D5W- ADD-VANTAGE 50 ML IV SCH (11:09)
[2019-03-31] MEDS: MVI, adult No.4 with vit. K 10 ML in normal saline 500ml IV soln 500 ML IV SCH ×2 (11:46)
[2019-03-31] MEDS: acetaminophen 325mg tablet PO PRN ×2 (14:30→20:40)
[2019-03-31] MEDS ORDERED: LORazepam 2 mg/ml vial IV PRN (16:00)
--- NOTE | 2019-03-31 17:20 | NUR ---
Reassessment: patient is day three with PPN, not recommended after day 3 and is currently turned off per bedside RN. Spoke with PICC line RN, patient had four lines clot. Per MD note patient's abdominal pain is improving and plans to start PO diet tomorrow morning, consider D5 to avoid hypoglycemia with PPN turned off, d/w MD and bedside RN. Patient admitted with acute on chronic pancreatitis with pancreatic pseudocyst and is s/p aspiration of pseudocyst by IR. Lipase is WNL. If cannot tolerate oral diet consider jejunal feeding instead of parenteral nutrition, d/w RN and MD. Will continue to follow. Recommend: 1. Advance diet as medically indicated to low fat, hopeful clear liquid diet tomorrow morning 2. monitor need for ONS with diet advancement 3. If cannot tolerate oral diet may benefit from jejunal tube feeding to meet needs 4. Weight per rx Addendum: 03/31/19 at [address] Amended: Links added.
--- NOTE | 2019-03-31 17:49 | NUR ---
PAGED SERVANDO RE PPN: PAGER ID: [phone] MESSAGE: CAROLINE RAMIREZ. SHOULD PPN BE D/Cd DUE TO CLOTTING ISSUES? SURGICAL ALBERT [id number]
[2019-03-31 18:00] VITALS: BP 118/84
[2019-03-31 18:25] LABS: BASOPHILS # (AUTO) 0.1 X10'3 (0-0.2); MONOCYTES # (AUTO) 0.8 X10'3 (0-0.9); NEUTROPHILS # (AUTO) 8.2 X10'3 (1.8-7.7); PLATELET COUNT 714 X10'3 (140-440)
[2019-03-31 18:27] LABS: BASOPHILS % (AUTO) 0.7 % (0-1); EOSINOPHILS # (AUTO) 0.3 X10'3 (0-0.9); EOSINOPHILS % (AUTO) 3.2 % (0-6); HEMATOCRIT 27.6 % (35.0-45.0); HEMOGLOBIN 9.5 g/dl (12.0-16.0); LYMPHOCYTES # (AUTO) 1.4 X10'3 (1.1-4.8); LYMPHOCYTES % (AUTO) 13.1 % (21-51); MEAN CORPUSCULAR HEMOGLOBIN 32.4 PG (27.0-31.0); MEAN CORPUSCULAR HGB CONC 34.3 g/dL (33.0-36.5); MEAN CORPUSCULAR VOLUME 94.5 FL (78-98); MEAN PLATELET VOLUME 7.4 FL (7.4-10.4); MONOCYTES % (AUTO) 7.7 % (2-12); NEUTROPHILS % (AUTO) 75.3 % (42-75); RED BLOOD COUNT 2.92 X10'6 (4.20-5.60); RED CELL DISTRIBUTION WIDTH 14.6 % (11.5-14.5); WHITE BLOOD COUNT 10.8 X10'3 (4.5-11.0)
--- NOTE | 2019-03-31 18:37 | NUR ---
Problems reprioritized. Patient report given, questions answered & plan of care reviewed with prudence rn.
[2019-03-31 18:45] LABS: PARTIAL THROMBOPLASTIN TIME 31 SECONDS (22-32)
--- NOTE | 2019-03-31 18:54 | NUR ---
Patient in room [facility] 359. I have received report from Yudith GARCIA and had the opportunity to ask questions and assume patient care. Patient is resting.
[2019-03-31] MEDS: fat emulsion IV bag 250 ML IV SCH (21:00)
[2019-03-31] MEDS: insulin glargine (Lantus) pen - multi-dose SQ SCH (21:00)
[2019-03-31] MEDS: temazepam 15mg capsule PO PRN (22:26)
[2019-04-01 00:22] VITALS: BP 111/73
[2019-04-01] MEDS: Trace element-5 inj. 1 ML in AA 4.25%/calcium/lytes/D5W 2,000 ML IV SCH ×2 (05:19→11:02)
[2019-04-01 06:25] LABS: BASOPHILS # (AUTO) 0.1 X10'3 (0-0.2); EOSINOPHILS # (AUTO) 0.4 X10'3 (0-0.9); EOSINOPHILS % (AUTO) 4.8 % (0-6); HEMOGLOBIN 9.6 g/dl (12.0-16.0); MONOCYTES % (AUTO) 10.3 % (2-12); WHITE BLOOD COUNT 9.3 X10'3 (4.5-11.0)
[2019-04-01 06:31] LABS: HEMATOCRIT 27.1 % (35.0-45.0); LYMPHOCYTES # (AUTO) 1.2 X10'3 (1.1-4.8); LYMPHOCYTES % (AUTO) 12.6 % (21-51); MEAN CORPUSCULAR HEMOGLOBIN 33.2 PG (27.0-31.0); MEAN CORPUSCULAR HGB CONC 35.4 g/dL (33.0-36.5); MEAN CORPUSCULAR VOLUME 93.8 FL (78-98); MEAN PLATELET VOLUME 7.8 FL (7.4-10.4); NEUTROPHILS # (AUTO) 6.6 X10'3 (1.8-7.7); NEUTROPHILS % (AUTO) 71.3 % (42-75); PLATELET COUNT 715 X10'3 (140-440); RED BLOOD COUNT 2.89 X10'6 (4.20-5.60); RED CELL DISTRIBUTION WIDTH 14.6 % (11.5-14.5)
--- NOTE | 2019-04-01 06:31 | NUR ---
Patient in room [facility] 359. I have received report from serjio majano and had the opportunity to ask questions and assume patient care.
--- NOTE | 2019-04-01 06:36 | NUR ---
Problems reprioritized. Patient report given, questions answered & plan of care reviewed with Yudith GARCIA.
[2019-04-01 06:57] VITALS: BP 119/78
[2019-04-01 07:03] LABS: ALANINE AMINOTRANSFERASE 10 U/L (12-78); ALBUMIN 2.2 G/DL (3.4-5.0); ALBUMIN/GLOBULIN RATIO 0.4 (1.1-1.5); ALKALINE PHOSPHATASE 88 IU/L (46-116); ANION GAP 11 (8-16); ASPARTATE AMINO TRANSFERASE 14 U/L (10-37); BILIRUBIN,TOTAL 0.3 MG/DL (0.1-1.0); BLOOD UREA NITROGEN 8 MG/DL (7-18); BUN/CREATININE RATIO 12.3 (6.6-38.0); CALCIUM 9.5 MG/DL (8.5-10.1); CHLORIDE 99 MMOL/L (99-107); CREATININE 0.65 MG/DL (0.40-0.90); GLUCOSE 97 MG/DL (70-104); LIPASE 1364 U/L (73-393); POTASSIUM 3.6 MMOL/L (3.5-5.1); SODIUM 138 MMOL/L (135-145); TOTAL CARBON DIOXIDE 28.1 MMOL/L (24-32); TOTAL PROTEIN 7.5 G/DL (6.4-8.2); eGFR > 90 ML/MIN
[2019-04-01] MEDS: K and/or MAG REPLACEMENT MC SCH ×2 (07:22→19:18)
[2019-04-01] MEDS: acetaminophen 325mg tablet PO PRN ×2 (07:25→17:51)
[2019-04-01] MEDS: nicotine 14mg patch - 24hr TD SCH (07:26)
[2019-04-01] MEDS: lactobacillus rhamnosus 10,000 MMU CELLS/CAPSULE PO SCH ×2 (07:29→19:33)
[2019-04-01] MEDS: MVI, adult No.4 with vit. K 10 ML in normal saline 500ml IV soln 500 ML IV SCH ×2 (08:00)
--- NOTE | 2019-04-01 08:45 | NUR ---
SPOKE TO DR AL RE PT NOT BEING ON PPN THROUGHOUT THE NIGHT DUE TO RISK OF IV CLOTTING. PT HAS REQUIRED PICC NURSE TO PLACE IV. ALSO ADDRESSED INCREASE LIPASE TO 1364 FROM 275. ORDERS FOR ABD CT AND IV FLUIDS GIVEN.
--- NOTE | 2019-04-01 09:13 | NUR ---
DID NOT ADMIN MULTI VITAMIN DUE TO PT IV CLOTTING ISSUES. WILL START IV FLUIDS
[2019-04-01] MEDS: diatr meglu/diatrizoate 30ml oral sol.-(3 dose) bottle PO SCH ×3 (09:28→15:06)
[2019-04-01] MEDS: dextrose 5%-1/2 normal saline 1,000 ML IV SCH (09:28)
[2019-04-01] MEDS ORDERED: traMADol 50MG tablet PO ONE (10:35)
--- NOTE | 2019-04-01 10:58 | NUR ---
OK TO RESTART PPN PER DR AL
[2019-04-01 11:23] VITALS: BP 116/81
--- NOTE | 2019-04-01 13:39 | NUR ---
Reassessment: PO diet has been advanced to ice chips. Lipase increased to 1364 from 275. Pt to receive PICC for TPN if patient fails trials of diet by mouth per MD notes. PPN has been reinitiated given rise in lipase. TPN recommendations below for if pt to receive TPN. Will continue to follow closely. Recommend: 1. Advance diet as medically indicated to low fat 2. monitor need for ONS with diet advancement 3. 2:1 PPN using Clinimix E 4.25/5 at 100 ml/hr providing total volume of 2400 ml daily with separate 20% intralipids running at 17 ml/hr to provide total 81.6 g lipids. Total PPN and lipids will provide 102 g protein, 120 g dextrose, 1216 cals, and 1.59 gm/kg/min CHO loading. This will meet protein needs however will not meet calorie needs. 3. If cannot tolerate oral diet may benefit from jejunal tube feeding to meet needs 4. If TPN, continuous 2:1 Clinimix E 5/20 at 75 mL/hr with separate 20% intralipids to run at 10 mL/hr for 12 hours 5.Weight per rx Addendum: 04/01/19 at [address] Amended: Links added.
[2019-04-01] MEDS ORDERED: iohexol 300mg/ml 100ml inj. ONE (15:19)
[2019-04-01 18:00] VITALS: BP 117/81
--- NOTE | 2019-04-01 18:14 | NUR ---
Problems reprioritized. Patient report given, questions answered & plan of care reviewed with PRUDENCE RN.
[2019-04-01] MEDS: insulin glargine (Lantus) pen - multi-dose SQ SCH (21:00)
[2019-04-01] MEDS: fat emulsion IV bag 250 ML IV SCH (22:35)
[2019-04-02 00:32] VITALS: BP 113/82
[2019-04-02] MEDS: dextrose 5%-1/2 normal saline 1,000 ML IV SCH (01:25)
[2019-04-02] MEDS: acetaminophen 325mg tablet PO PRN ×2 (02:31→10:14)
[2019-04-02 05:26] LABS: BASOPHILS # (AUTO) 0.1 X10'3 (0-0.2); EOSINOPHILS # (AUTO) 0.6 X10'3 (0-0.9); LYMPHOCYTES # (AUTO) 1.3 X10'3 (1.1-4.8); MEAN CORPUSCULAR HGB CONC 34.2 g/dL (33.0-36.5); MEAN PLATELET VOLUME 7.8 FL (7.4-10.4); MONOCYTES # (AUTO) 1.1 X10'3 (0-0.9); RED BLOOD COUNT 2.82 X10'6 (4.20-5.60); RED CELL DISTRIBUTION WIDTH 15.1 % (11.5-14.5)
[2019-04-02 05:30] LABS: EOSINOPHILS % (AUTO) 5.1 % (0-6); HEMATOCRIT 26.3 % (35.0-45.0); LYMPHOCYTES % (AUTO) 11.2 % (21-51); MEAN CORPUSCULAR HEMOGLOBIN 31.9 PG (27.0-31.0); MEAN CORPUSCULAR VOLUME 93.5 FL (78-98); MONOCYTES % (AUTO) 10.1 % (2-12); NEUTROPHILS # (AUTO) 8.2 X10'3 (1.8-7.7); NEUTROPHILS % (AUTO) 72.6 % (42-75); PLATELET COUNT 709 X10'3 (140-440); WHITE BLOOD COUNT 11.3 X10'3 (4.5-11.0)
[2019-04-02 06:43] LABS: ALANINE AMINOTRANSFERASE 13 U/L (12-78); ALBUMIN 2.2 G/DL (3.4-5.0); ALBUMIN/GLOBULIN RATIO 0.4 (1.1-1.5); ALKALINE PHOSPHATASE 96 IU/L (46-116); ANION GAP 10 (8-16); ASPARTATE AMINO TRANSFERASE 15 U/L (10-37); BILIRUBIN,TOTAL 0.2 MG/DL (0.1-1.0); BLOOD UREA NITROGEN 11 MG/DL (7-18); BUN/CREATININE RATIO 14.3 (6.6-38.0); CALCIUM 9.3 MG/DL (8.5-10.1); CHLORIDE 98 MMOL/L (99-107); CREATININE 0.77 MG/DL (0.40-0.90); GLUCOSE 121 MG/DL (70-104); POTASSIUM 3.9 MMOL/L (3.5-5.1); SODIUM 135 MMOL/L (135-145); TOTAL CARBON DIOXIDE 27.1 MMOL/L (24-32); TOTAL PROTEIN 7.6 G/DL (6.4-8.2); eGFR 85 ML/MIN
[2019-04-02 07:13] LABS: LIPASE 5308 U/L (73-393)
[2019-04-02 07:35] VITALS: BP 111/74
[2019-04-02] MEDS: K and/or MAG REPLACEMENT MC SCH ×2 (08:00→20:00)
[2019-04-02] MEDS: Trace element-5 inj. 1 ML in AA 4.25%/calcium/lytes/D5W 2,000 ML IV SCH (08:03)
[2019-04-02] MEDS: lactobacillus rhamnosus 10,000 MMU CELLS/CAPSULE PO SCH ×2 (08:04→19:34)
[2019-04-02] MEDS: nicotine 14mg patch - 24hr TD SCH (08:05)
[2019-04-02] MEDS: MVI, adult No.4 with vit. K 10 ML in normal saline 500ml IV soln 500 ML IV SCH ×2 (10:13)
[2019-04-02 11:00] VITALS: BP 119/82
[2019-04-02] MEDS ORDERED: HYDROcodone/acetaminophen 5mg/325mg tablet PO PRN (11:55)
[2019-04-02] MEDS: HYDROcodone/acetaminophen 10/325mg tab PO PRN ×2 (12:30→16:57)
[2019-04-02] MEDS: morphine 2 MG/ML inj. syringe IV PRN ×2 (15:29→20:49)
--- NOTE | 2019-04-02 18:06 | NUR ---
Problems reprioritized. Patient report given, questions answered & plan of care reviewed with RADHA Cristobal.
[2019-04-02 18:30] VITALS: BP 115/77
[2019-04-02] MEDS: fat emulsion IV bag 250 ML IV SCH (19:36)
[2019-04-02] MEDS: insulin glargine (Lantus) pen - multi-dose SQ SCH (20:21)
[2019-04-03] MEDS: morphine 2 MG/ML inj. syringe IV PRN ×5 (00:43→20:24)
[2019-04-03] MEDS: Trace element-5 inj. 1 ML in AA 4.25%/calcium/lytes/D5W 2,000 ML IV SCH (03:22)
[2019-04-03 06:02] LABS: BASOPHILS # (AUTO) 0.1 X10'3 (0-0.2); HEMOGLOBIN 9.1 g/dl (12.0-16.0); LYMPHOCYTES # (AUTO) 1.4 X10'3 (1.1-4.8); MEAN CORPUSCULAR HEMOGLOBIN 32.1 PG (27.0-31.0); WHITE BLOOD COUNT 11.2 X10'3 (4.5-11.0)
[2019-04-03 06:04] LABS: BASOPHILS % (AUTO) 0.9 % (0-1); EOSINOPHILS # (AUTO) 0.5 X10'3 (0-0.9); EOSINOPHILS % (AUTO) 4.6 % (0-6); HEMATOCRIT 26.7 % (35.0-45.0); LYMPHOCYTES % (AUTO) 12.3 % (21-51); MEAN CORPUSCULAR HGB CONC 34.2 g/dL (33.0-36.5); MEAN CORPUSCULAR VOLUME 93.9 FL (78-98); MEAN PLATELET VOLUME 7.9 FL (7.4-10.4); MONOCYTES % (AUTO) 9.1 % (2-12); NEUTROPHILS # (AUTO) 8.2 X10'3 (1.8-7.7); NEUTROPHILS % (AUTO) 73.1 % (42-75); PLATELET COUNT 618 X10'3 (140-440); RED BLOOD COUNT 2.84 X10'6 (4.20-5.60); RED CELL DISTRIBUTION WIDTH 15.1 % (11.5-14.5)
[2019-04-03 06:49] LABS: ALANINE AMINOTRANSFERASE 13 U/L (12-78); ALBUMIN 2.4 G/DL (3.4-5.0); ALBUMIN/GLOBULIN RATIO 0.4 (1.1-1.5); ALKALINE PHOSPHATASE 94 IU/L (46-116); ANION GAP 11 (8-16); ASPARTATE AMINO TRANSFERASE 14 U/L (10-37); BILIRUBIN,TOTAL 0.2 MG/DL (0.1-1.0); BLOOD UREA NITROGEN 12 MG/DL (7-18); BUN/CREATININE RATIO 16.4 (6.6-38.0); CALCIUM 9.6 MG/DL (8.5-10.1); CHLORIDE 96 MMOL/L (99-107); CREATININE 0.73 MG/DL (0.40-0.90); GLUCOSE 130 MG/DL (70-104); PHOSPHORUS 5.7 MG/DL (2.3-4.5); POTASSIUM 4.1 MMOL/L (3.5-5.1); PREALBUMIN 19.1 MG/DL (19-36); SODIUM 133 MMOL/L (135-145); TOTAL CARBON DIOXIDE 26.4 MMOL/L (24-32); TOTAL PROTEIN 7.9 G/DL (6.4-8.2); eGFR 90 ML/MIN
--- NOTE | 2019-04-03 06:56 | NUR ---
Problems reprioritized. Patient report given, questions answered & plan of care reviewed with MISHA. Addendum: 04/03/19 at 0657 by James Barton RN Amended: Links added.
--- NOTE | 2019-04-03 06:56 | NUR ---
Patient in room [facility] 359. I have received report from Levar and had the opportunity to ask questions and assume patient care.
[2019-04-03 07:00] VITALS: BP 114/82
--- NOTE | 2019-04-03 07:00 | NUR ---
Upon assessment, PIV appears infiltrated. Pt. complains of pain to ANAIS. Disconnected current IV and flushed with complaints of discomfort/pain. Medication stopped. made aware that the current solution is not running. PICC nurse to place PICC nuse for administration of TPN per PICC line. Addendum: 04/03/19 at 1122 by Shavon Pantoja RN entry level drafter error, PICC nurse to place PICC LINE.
[2019-04-03] MEDS: nicotine 14mg patch - 24hr TD SCH (07:40)
[2019-04-03] MEDS: MVI, adult No.4 with vit. K 10 ML in normal saline 500ml IV soln 500 ML IV SCH ×2 (07:40)
[2019-04-03] MEDS: HYDROcodone/acetaminophen 10/325mg tab PO PRN (07:54)
[2019-04-03] MEDS: K and/or MAG REPLACEMENT MC SCH ×2 (08:00→20:00)
[2019-04-03] MEDS: lactobacillus rhamnosus 10,000 MMU CELLS/CAPSULE PO SCH ×2 (08:00→20:23)
--- NOTE | 2019-04-03 09:29 | NUR ---
MD made aware that PIV to ANAIS is not infiltrated. PPN not infusing at this time. stated that she will come sign the consent for insertion of PICC line around 10 Am. Will continue to monitor.
[2019-04-03 11:00] VITALS: BP 110/70
--- NOTE | 2019-04-03 11:00 | NUR ---
Attempted contact with Dr. Le regarding pt's clotting of superficial veins, and concern Dr. Le states she will call back as she is bedside with another patient. MARIANNA GARCIA
--- NOTE | 2019-04-03 11:44 | NUR ---
PICC nurse is investigating which line is approrpaite for this patient as she clots so quickly. Pt. has superficial clots. Patients blood sugar has been stable considering not being able to taper her dose of PPN due to no access. MD is aware of condition. PICC nurse is also checking with IR right now. Pending response.
[2019-04-03] MEDS ORDERED: DEXTROSE 20% IV SCH (12:30)
[2019-04-03] MEDS ORDERED: TRACE ELEMENT IV SCH (12:30)
[2019-04-03] MEDS ORDERED: AMINO ACIDS IV SCH (12:30)
[2019-04-03] MEDS ORDERED: AMINO ACIDS 5 %/DEXTROSE 20 % 1,000 ML IV SCH (12:30)
--- NOTE | 2019-04-03 15:35 | NUR ---
Unable to obtain 1400 blood glucose as she is getting a PICC inserted on the ACCE unit. Addendum: 04/03/19 at 1536 by Shavon Pantoja RN Amended: Links added.
--- NOTE | 2019-04-03 16:21 | NUR ---
Reassessment: Noted that patient was started on TPN today. Pt has PICC line. No TPN consult received; discussed with pharmacy that recommendations for TPN are available if given RD consult. Pt NPO. Lipase increased to 5308. In view of not able to advance diet may benefit from jejunal tube feedings to maintain gut integrity, d/w hospitalist 03/31. Will continue to follow closely. Recommend: 1. Advance diet as medically indicated to low fat 2. monitor need for ONS with diet advancement 3. If cannot tolerate oral diet may benefit from jejunal tube feeding to meet needs 4. TPN per MD. With TPN recommend continuous 2:1 TPN using Clinimix non-E 08/08 at 75 mL/hr with separate 20% intralipids to run at 10 mL/hr for 12 hours. This will provide total volume of 1920 ml, 1824 cals, 90 gm protein, 4.8 mg/kg/min CHO loading and 1464 non protein cals. 5. daily weights, prealbumin and TG q wednesday and Addendum: 04/03/19 at [address] Amended: Links added.
--- NOTE | 2019-04-03 16:40 | NUR ---
3059 Calli Mendez, PICC nurse inserted PICC line, TPN infusing now. Do you want to start an anticoagulant r/t superficial upper extremity blood clots? PICC nurse had a difficult time inserting. Thank you, Shavon GARCIA
--- NOTE | 2019-04-03 17:25 | NUR ---
Contacted Dr. Le again regarding patients clots bilaterally in arms and in cephalic vein in right arm as well as difficulty placing picc. No new orders given. YORDAN GARCIA
--- NOTE | 2019-04-03 18:20 | NUR ---
Problems reprioritized. Patient report given, questions answered & plan of care reviewed with
[2019-04-03 20:00] VITALS: BP 120/71
[2019-04-03] MEDS: insulin glargine (Lantus) pen - multi-dose SQ SCH (21:00)
[2019-04-03] MEDS: fat emulsion IV bag 250 ML IV SCH (21:53)
[2019-04-03] MEDS: temazepam 15mg capsule PO PRN (23:13)
[2019-04-03] MEDS: heparin, porcine 5000 units/ml vial SQ SCH (23:14)
[2019-04-04] VITALS: BP 114/74
[2019-04-04 04:34] LABS: BASOPHILS # (AUTO) 0.1 X10'3 (0-0.2); BASOPHILS % (AUTO) 1.2 % (0-1); EOSINOPHILS # (AUTO) 0.4 X10'3 (0-0.9); EOSINOPHILS % (AUTO) 5.3 % (0-6); HEMATOCRIT 26.7 % (35.0-45.0); LYMPHOCYTES # (AUTO) 1.6 X10'3 (1.1-4.8); LYMPHOCYTES % (AUTO) 21.2 % (21-51); MEAN CORPUSCULAR HEMOGLOBIN 32.1 PG (27.0-31.0); MEAN CORPUSCULAR VOLUME 94.5 FL (78-98); MEAN PLATELET VOLUME 8.1 FL (7.4-10.4); MONOCYTES # (AUTO) 0.8 X10'3 (0-0.9); MONOCYTES % (AUTO) 10.3 % (2-12); NEUTROPHILS # (AUTO) 4.6 X10'3 (1.8-7.7); PLATELET COUNT 585 X10'3 (140-440); RED BLOOD COUNT 2.82 X10'6 (4.20-5.60); RED CELL DISTRIBUTION WIDTH 15.4 % (11.5-14.5); WHITE BLOOD COUNT 7.5 X10'3 (4.5-11.0)
--- NOTE | 2019-04-04 06:18 | NUR ---
Problems reprioritized. Patient report given, questions answered & plan of care reviewed with MICHAEL. Addendum: 04/04/19 at 0619 by James Barton RN Amended: Links added.
--- NOTE | 2019-04-04 07:17 | NUR ---
Patient in room [facility] 359. I have received report from Levar GARCIA and had the opportunity to ask questions and assume patient care.
[2019-04-04] MEDS: AMINO ACIDS IV SCH ×2 (08:00→16:15)
[2019-04-04] MEDS ORDERED: AMINO ACIDS 5 %/DEXTROSE 20 % 1,000 ML IV SCH (08:00)
[2019-04-04] MEDS: DEXTROSE 20% IV SCH ×2 (08:00→16:15)
[2019-04-04] MEDS: K and/or MAG REPLACEMENT MC SCH ×2 (08:00→20:00)
[2019-04-04] MEDS: TRACE ELEMENT IV SCH ×2 (08:00→16:15)
[2019-04-04] MEDS: lactobacillus rhamnosus 10,000 MMU CELLS/CAPSULE PO SCH ×2 (08:08→20:27)
[2019-04-04] MEDS: nicotine 14mg patch - 24hr TD SCH (08:09)
[2019-04-04] MEDS: heparin, porcine 5000 units/ml vial SQ SCH ×3 (08:09→23:08)
[2019-04-04 08:20] VITALS: BP 120/70
[2019-04-04] MEDS: MVI, adult No.4 with vit. K 10 ML in normal saline 500ml IV soln 500 ML IV SCH ×2 (09:11)
[2019-04-04] MEDS: morphine 2 MG/ML inj. syringe IV PRN ×3 (09:11→20:28)
[2019-04-04 11:10] LABS: ALANINE AMINOTRANSFERASE 23 U/L (12-78); ALBUMIN 2.6 G/DL (3.4-5.0); ALBUMIN/GLOBULIN RATIO 0.4 (1.1-1.5); ALKALINE PHOSPHATASE 127 IU/L (46-116); ANION GAP 11 (8-16); ASPARTATE AMINO TRANSFERASE 29 U/L (10-37); BILIRUBIN,TOTAL 0.2 MG/DL (0.1-1.0); BLOOD UREA NITROGEN 12 MG/DL (7-18); BUN/CREATININE RATIO 16.9 (6.6-38.0); CALCIUM 9.5 MG/DL (8.5-10.1); CHLORIDE 99 MMOL/L (99-107); CREATININE 0.71 MG/DL (0.40-0.90); GLUCOSE 113 MG/DL (70-104); POTASSIUM 4.2 MMOL/L (3.5-5.1); SODIUM 136 MMOL/L (135-145); TOTAL CARBON DIOXIDE 26.2 MMOL/L (24-32); TOTAL PROTEIN 8.5 G/DL (6.4-8.2); eGFR > 90 ML/MIN
[2019-04-04 11:13] LABS: LIPASE 2037 U/L (73-393)
[2019-04-04 11:34] VITALS: BP 137/90
[2019-04-04 11:47] LABS: MAGNESIUM 1.7 MG/DL (1.5-2.4); PHOSPHORUS 5.4 MG/DL (2.3-4.5)
[2019-04-04] MEDS: HYDROcodone/acetaminophen 10/325mg tab PO PRN (15:48)
--- NOTE | 2019-04-04 18:32 | NUR ---
Problems reprioritized. Patient report given, questions answered & plan of care reviewed with Levar GARCIA.
[2019-04-04 19:00] VITALS: BP 110/66
[2019-04-04] MEDS: insulin glargine (Lantus) pen - multi-dose SQ SCH (21:00)
[2019-04-04] MEDS: fat emulsion IV bag 250 ML IV SCH (21:44)
[2019-04-04] MEDS: temazepam 15mg capsule PO PRN (23:08)
[2019-04-05] VITALS: BP 121/75
[2019-04-05] MEDS: morphine 2 MG/ML inj. syringe IV PRN ×3 (00:30→19:56)
[2019-04-05 05:31] LABS: BASOPHILS # (AUTO) 0.1 X10'3 (0-0.2); BASOPHILS % (AUTO) 1.3 % (0-1); EOSINOPHILS # (AUTO) 0.4 X10'3 (0-0.9); EOSINOPHILS % (AUTO) 5.6 % (0-6); HEMATOCRIT 27.8 % (35.0-45.0); HEMOGLOBIN 9.3 g/dl (12.0-16.0); LYMPHOCYTES # (AUTO) 1.7 X10'3 (1.1-4.8); LYMPHOCYTES % (AUTO) 25.3 % (21-51); MEAN CORPUSCULAR HEMOGLOBIN 31.5 PG (27.0-31.0); MEAN CORPUSCULAR HGB CONC 33.4 g/dL (33.0-36.5); MEAN CORPUSCULAR VOLUME 94.4 FL (78-98); MEAN PLATELET VOLUME 8.4 FL (7.4-10.4); MONOCYTES # (AUTO) 0.8 X10'3 (0-0.9); MONOCYTES % (AUTO) 12.2 % (2-12); NEUTROPHILS # (AUTO) 3.8 X10'3 (1.8-7.7); NEUTROPHILS % (AUTO) 55.6 % (42-75); PLATELET COUNT 561 X10'3 (140-440); RED BLOOD COUNT 2.94 X10'6 (4.20-5.60); RED CELL DISTRIBUTION WIDTH 15.4 % (11.5-14.5); WHITE BLOOD COUNT 6.8 X10'3 (4.5-11.0)
--- NOTE | 2019-04-05 07:09 | NUR ---
Problems reprioritized. Patient report given, questions answered & plan of care reviewed with BRYANNA. Addendum: 04/05/19 at 0709 by James Barton RN Amended: Links added.
[2019-04-05 08:00] VITALS: BP 113/69
[2019-04-05] MEDS: K and/or MAG REPLACEMENT MC SCH ×2 (08:00→20:00)
[2019-04-05] MEDS: lactobacillus rhamnosus 10,000 MMU CELLS/CAPSULE PO SCH ×2 (08:56→19:55)
[2019-04-05] MEDS: nicotine 14mg patch - 24hr TD SCH (08:56)
[2019-04-05] MEDS: MVI, adult No.4 with vit. K 10 ML in normal saline 500ml IV soln 500 ML IV SCH ×2 (08:57)
[2019-04-05] MEDS: heparin, porcine 5000 units/ml vial SQ SCH ×3 (08:57→23:37)
[2019-04-05 11:00] VITALS: BP 117/71
[2019-04-05] MEDS: HYDROcodone/acetaminophen 10/325mg tab PO PRN ×2 (11:40→16:14)
[2019-04-05] MEDS: AMINO ACIDS IV SCH (16:14)
[2019-04-05] MEDS: TRACE ELEMENT IV SCH (16:14)
[2019-04-05] MEDS: DEXTROSE 20% IV SCH (16:14)
--- NOTE | 2019-04-05 16:21 | NUR ---
Reassessment: Pt tolerating TPN at goal. Transfer refused by [facility] per MD note. May need pancreatic duct stent and ERCP per MD note. LBM 04/05. Given prolonged nutrition needs w/ pancreatitis and functional gut may benefit from jejunal feedings per MD for optimal nutrition delivery. Will continue to monitor. Recommend: 1. Advance diet as medically indicated to low fat 2. monitor need for ONS once diet advances 3. may benefit from jejunal tube feeding to meet needs given functional gut 4. TPN per MD. With TPN recommend continuous 2:1 TPN using Clinimix non-E 08/08 at 75 mL/hr with separate 20% intralipids to run at 10 mL/hr for 12 hours. This will provide total volume of 1920 ml, 1824 cals, 90 gm protein, 4.8 mg/kg/min CHO loading and 1464 non protein cals. 5. daily weights, prealbumin and TG q wednesday and Addendum: 04/05/19 at [address] Amended: Links added.
--- NOTE | 2019-04-05 18:00 | NUR ---
Patient was rounded on frequently today, day too busy to chart individual interventions.
--- NOTE | 2019-04-05 18:45 | NUR ---
shift change report given by RADHA Carvajal
[2019-04-05 19:30] VITALS: BP 94/58
[2019-04-05] MEDS: insulin glargine (Lantus) pen - multi-dose SQ SCH (21:00)
[2019-04-05] MEDS: fat emulsion IV bag 250 ML IV SCH (21:51)
[2019-04-05] MEDS: temazepam 15mg capsule PO PRN (23:37)
[2019-04-06] VITALS: BP 98/62
[2019-04-06] MEDS: AMINO ACIDS IV SCH ×2 (00:03→05:01)
[2019-04-06] MEDS: TRACE ELEMENT IV SCH ×2 (00:03→05:01)
[2019-04-06] MEDS: DEXTROSE 20% IV SCH ×2 (00:03→05:01)
[2019-04-06] MEDS: morphine 2 MG/ML inj. syringe IV PRN ×2 (00:08→13:24)
--- NOTE | 2019-04-06 06:00 | NUR ---
Patient in room [facility] 359. I have received report from RADHA Buckley and had the opportunity to ask questions and assume patient care.
[2019-04-06 06:11] LABS: ALANINE AMINOTRANSFERASE 33 U/L (12-78); ALBUMIN 2.5 G/DL (3.4-5.0); ALBUMIN/GLOBULIN RATIO 0.4 (1.1-1.5); ALKALINE PHOSPHATASE 126 IU/L (46-116); ANION GAP 10 (8-16); ASPARTATE AMINO TRANSFERASE 33 U/L (10-37); BILIRUBIN,TOTAL 0.2 MG/DL (0.1-1.0); BLOOD UREA NITROGEN 19 MG/DL (7-18); BUN/CREATININE RATIO 27.1 (6.6-38.0); CALCIUM 9.8 MG/DL (8.5-10.1); CHLORIDE 104 MMOL/L (99-107); GLUCOSE 109 MG/DL (70-104); LIPASE 425 U/L (73-393); PHOSPHORUS 4.8 MG/DL (2.3-4.5); POTASSIUM 4.1 MMOL/L (3.5-5.1); SODIUM 139 MMOL/L (135-145); TOTAL CARBON DIOXIDE 25.5 MMOL/L (24-32); TOTAL PROTEIN 8.1 G/DL (6.4-8.2); eGFR > 90 ML/MIN
[2019-04-06 08:00] VITALS: BP 94/54
[2019-04-06] MEDS: K and/or MAG REPLACEMENT MC SCH ×2 (08:00→20:00)
[2019-04-06] MEDS: MVI, adult No.4 with vit. K 10 ML in normal saline 500ml IV soln 500 ML IV SCH ×2 (10:18)
[2019-04-06] MEDS: heparin, porcine 5000 units/ml vial SQ SCH ×3 (10:19→23:50)
[2019-04-06] MEDS: HYDROcodone/acetaminophen 10/325mg tab PO PRN ×3 (10:19→21:56)
[2019-04-06] MEDS: nicotine 14mg patch - 24hr TD SCH (10:20)
[2019-04-06] MEDS: lactobacillus rhamnosus 10,000 MMU CELLS/CAPSULE PO SCH ×2 (10:21→21:04)
[2019-04-06 11:00] VITALS: BP 124/64
[2019-04-06] MEDS ORDERED: Trace element-5 inj. 1 ML in AA 5%/CALCIUM/LYTES/DEXT 20% 2,000 ML IV SCH (12:35)
[2019-04-06] MEDS ORDERED: DEXTROSE 20% IV SCH (12:45)
[2019-04-06] MEDS ORDERED: TRACE ELEMENT IV SCH (12:45)
[2019-04-06] MEDS ORDERED: AMINO ACIDS IV SCH (12:45)
--- NOTE | 2019-04-06 19:13 | NUR ---
Problems reprioritized. Patient report given, questions answered & plan of care reviewed with Madyson GARCIA.
--- NOTE | 2019-04-06 19:16 | NUR ---
Patient in room [facility] 359. I have received report from BRYANNA GARCIA and had the opportunity to ask questions and assume patient care.
[2019-04-06 20:00] VITALS: BP 111/72
[2019-04-06] MEDS: fat emulsion IV bag 250 ML IV SCH (21:00)
[2019-04-06] MEDS: insulin glargine (Lantus) pen - multi-dose SQ SCH (21:00)
[2019-04-06] MEDS: temazepam 15mg capsule PO PRN (23:49)
[2019-04-07] VITALS: BP 104/69
--- NOTE | 2019-04-07 06:10 | NUR ---
Patient in room [facility] 359. I have received report from Sue Rogers RN and had the opportunity to ask questions and assume patient care.
[2019-04-07 06:30] VITALS: BP 99/67
--- NOTE | 2019-04-07 06:30 | NUR ---
Problems reprioritized. Patient report given, questions answered & plan of care reviewed with LIONEL RN.
[2019-04-07] MEDS: K and/or MAG REPLACEMENT MC SCH (07:36)
[2019-04-07] MEDS: lactobacillus rhamnosus 10,000 MMU CELLS/CAPSULE PO SCH (08:37)
[2019-04-07] MEDS: nicotine 14mg patch - 24hr TD SCH (08:37)
[2019-04-07] MEDS: HYDROcodone/acetaminophen 10/325mg tab PO PRN ×2 (08:39→12:39)
[2019-04-07] MEDS: heparin, porcine 5000 units/ml vial SQ SCH (08:39)
[2019-04-07 11:00] VITALS: BP 108/72
--- NOTE | 2019-04-07 12:50 | NUR ---
DC inst provided to pt. All belongings sent w/pt. PICC DC'd, catheter/tip intact. Pt ambulated to front lobby.
== END 2019-04-07 12:52 | disposition home or self-care (01) | DRG 282 ==
LOC: ER 21:40 → ED HOLD 03-23 04:20 → SUR 3N 03-23 05:35
PROVIDERS: ADMIT Hospitalist; ATTEND Hospitalist
PROC: 0T913ZZ Drainage of Left Kidney, Percutaneous Approach (ICD-10-PCS; principal; 2019-03-27)
PROC: 02HV33Z Insertion of Infusion Device into Superior Vena Cava, Percutaneous Approach (ICD-10-PCS; 2019-04-03)
PROC: B548ZZA Ultrasonography of Superior Vena Cava, Guidance (ICD-10-PCS; 2019-04-03)
DX: K86.3 Pseudocyst of pancreas (principal); E43 Unspecified severe protein-calorie malnutrition; J90 Pleural effusion, not elsewhere classified; K85.20 Alcohol induced acute pancreatitis without necrosis or infection; F17.210 Nicotine dependence, cigarettes, uncomplicated; D63.8 Anemia in other chronic diseases classified elsewhere; E87.1 Hypo-osmolality and hyponatremia; E87.6 Hypokalemia; K86.1 Other chronic pancreatitis; N76.0 Acute vaginitis; Z68.1 Body mass index [BMI] 19.9 or less, adult; Z71.6 Tobacco abuse counseling
CPT/HCPCS: 36415; 36573; 49406; 71046; 74176; 74177; 76937; 80053; 81003; 81025; 82272; 82948; 83036; 83540; 83550; 83690; 83735; 84100; 84134; 84478; 85025; 85610; 85730; 87070; 87081; 87210; 87491; 93970; 96372; 99285; G0378; J0690; J0696; J1644; J1815; J2060; J2250; J2270; J2543; J3010; J3475; J3480; J7030; J7040; Q0112; Q9963; Q9967

== ENCOUNTER 2021-03-15 09:12 | Emergency (ER) | payer MEDICAID ==
[~2021-03-15] VITALS: Ht 165.1 cm; Wt 78.2 kg
[2021-03-15 09:19] VITALS: BP 123/84
[2021-03-15] MEDS ORDERED: cephalexin 500mg capsule PO ONE (09:35)
[2021-03-15] MEDS ORDERED: CEPH-585 PO (09:43)
== END 2021-03-15 09:57 | disposition home or self-care (01) ==
LOC: ER 09:12
DX: L72.3 Sebaceous cyst (principal); F17.200 Nicotine dependence, unspecified, uncomplicated; Z72.89 Other problems related to lifestyle; Z79.2 Long term (current) use of antibiotics
CPT/HCPCS: 99283

== ENCOUNTER 2021-03-15 21:39 | Emergency (ER) | payer MEDICAID ==
[~2021-03-15] VITALS: Ht 165.1 cm; Wt 78.2 kg
[~2021-03-15 21:39] MED LIST: CEPH-585 PO
[2021-03-15 21:54] VITALS: BP 116/81
[2021-03-16] MEDS ORDERED: LIDOcaine 1% W/epiNEPHrine 1:200,000 10ml vial IJ ONE (00:40)
[2021-03-16] MEDS ORDERED: LIDOcaine 1% W/epiNEPHrine 1:100,000 20ml vial IJ ONE (00:45)
== END 2021-03-16 01:08 | disposition home or self-care (01) ==
LOC: ER 21:40
DX: L02.413 Cutaneous abscess of right upper limb (principal); L72.3 Sebaceous cyst; Z72.89 Other problems related to lifestyle; Z79.2 Long term (current) use of antibiotics
CPT/HCPCS: 10060; 99282; J3490